=== PATIENT | female | born 1935 | race Caucasian/White ===

== ENCOUNTER 2016-06-02 17:07 | Emergency (ER) | payer MEDICARE, OTHER ==
[~2016-06-02 17:07] MED LIST: ACETAMINOPHEN325 MG PO; ASPIRIN CHEWABL81 MG PO; CERTAGEN1 EACH PO; DILANTIN100 MG PO; FEOSOL325 MG PO; LAXATIVE OF CHOICE PO; MOBIC7.5 MG PO; PEPCID AC20 MG PO; ROBITUSSIN100 MG/5 M PO; ULTRAM50 MG PO; VITAMIN B-121000 MC1 PO; XARELTO10 MG PO
== END 2016-06-02 19:20 | disposition home or self-care (01) ==
LOC: FER 17:07
DX: M25.562 Pain in left knee (principal); M19.90 Unspecified osteoarthritis, unspecified site; K21.9 Gastro-esophageal reflux disease without esophagitis; Z86.718 Personal history of other venous thrombosis and embolism; Z79.899 Other long term (current) drug therapy; Z96.649 Presence of unspecified artificial hip joint; W19.XXXA Unspecified fall, initial encounter; Y92.009 Unspecified place in unspecified non-institutional (private) residence as the place of occurrence of the external cause
CPT/HCPCS: 73564; J2270